=== PATIENT | female | born 1985 | race Hispanic/Latino ===

== ENCOUNTER 2020-09-15 17:56 | Emergency (ER) | payer OTHER ==
[2020-09-15] MEDS ORDERED: IBUPROFEN 600 MG TABLET ONE (19:19)
[2020-09-15] MEDS ORDERED: ACETAMINOPHEN EXTRA STRENGTH 500 MG TABLET ONE (19:20)
[2020-09-15 20:14] LABS: RAPID GROUP A STREP NEGATIVE (NEGATIVE)
[2020-09-15 20:35] LABS: APPEARANCE,URINE Clear (CLEAR); BILIRUBIN,URINE Negative (NEGATIVE); COLOR,URINE Yellow (YELLOW); GLUCOSE, URINE (UA) Negative (NEGATIVE); KETONES,URINE Trace mg/dL (NEGATIVE); LEUKOCYTE ESTERASE ,URINE Negative (NEGATIVE); NITRATE,URINE Negative (NEGATIVE); OCCULT BLOOD,URINE Large (NEGATIVE); PH,URINE 5.5 (5.0-8.0); PROTEIN,URINE Negative (NEGATIVE)
[2020-09-15 20:39] LABS: HCG,QUAL RESULT NEGATIVE (NEGATIVE)
[2020-09-15 20:44] LABS: BACTERIA,URINE Rare /HPF (None Seen); WBC,URINE 0-1 /HPF (0-1)
[2020-09-15 20:46] LABS: SQUAMOUS EPITHELIAL CELL,UR Few /HPF (0-2)
[2020-09-15 20:47] LABS: MUCUS,URINE Few LPF (None Seen)
== END 2020-09-15 20:40 | disposition home or self-care (01) ==
LOC: EDH 17:56
DX: U07.1 COVID-19 (principal)
CPT/HCPCS: 81001; 81025; 87426; 87804; 87880